=== PATIENT | female | born 1965 | race Asian ===

== ENCOUNTER 2022-03-06 21:55 | Emergency (ER) | payer MEDICAID ==
[~2022-03-06] VITALS: Ht 162.6 cm; Wt 71.0 kg
[2022-03-06] MEDS ORDERED: ADENOSINE 3 MG/ML 2ML VIAL IV ONE (22:45)
[2022-03-06 23:06] LABS: BASOPHILS % 0.7 % (0.0-2.0); EOSINOPHILS % 2.5 % (0.0-5.0); HEMATOCRIT. 43.7 % (36.0-48.0); HEMOGLOBIN. 14.9 g/dL (12.0-16.0); LYMPHOCYTES % 31.5 % (20.0-50.0); MEAN CORPUSCULAR HEMOGLOBIN 30.6 pg (28.0-32.0); MEAN PLATELET VOLUME 8.5 fl (7.4-10.4); MONOCYTES % 10.6 % (2.0-8.0); NEUTROPHILS % 54.7 % (40.0-76.0); PLATELET 201 x1000/uL (130-400); RED BLOOD CELL COUNT 4.86 mill/uL (4.2-5.4); RED CELL DISTRIBUTION WIDTH 13.8 % (11.6-14.6)
[2022-03-06 23:12] LABS: CHLORIDE 106 mEq/L (98-107)
[2022-03-07 01:25] VITALS: BP 110/62
[2022-03-07] MEDS ORDERED: METO-396 MT (02:37)
== END 2022-03-07 03:03 | disposition home or self-care (01) ==
LOC: ER 21:55
DX: I47.1 Supraventricular tachycardia (principal)
CPT/HCPCS: 36415; 71045; 80053; 84484; 85025; 93005; 96374; 99291; J0153